=== PATIENT | male | born 1970 | race African-American/Black ===

== ENCOUNTER 2018-08-31 15:24 | Emergency (ER) | payer OTHER ==
[~2018-08-31] VITALS: Ht 188 cm; Wt 163.6 kg
[~2018-08-31 15:24] MED LIST: ALBU8.5H8 IH; ASPI-1182 PO; BECL8.7A5 IH; BENZ0.5T44 PO; FURO80TA3 PO; GEMF600T89 PO; LISI40TA4 PO; METF-444 PO; METO-391 PO; NAPR-1024 PO; OMEP20CA10 PO; RISP4 PO; SLOWK8 PO; TRAM50TA4 PO; TRAZ-186 PO; VENL-68 PO
[2018-08-31 16:04] LABS: GLUCOSE,POINT OF CARE 172 MG/DL (70-110)
[2018-08-31] MEDS ORDERED: ACET-2247 PO (16:04)
[2018-08-31] MEDS ORDERED: LISI-661 PO (16:04)
[2018-08-31] MEDS ORDERED: GABA-531 PO (16:04)
[2018-08-31] MEDS ORDERED: TRIA1CAP2 PO (16:04)
[2018-08-31] MEDS ORDERED: SIMV-260 PO (16:04)
[2018-08-31] MEDS ORDERED: TAMS-1 PO (16:06)
[2018-08-31 18:25] VITALS: BP 128/50
== END 2018-08-31 19:27 | disposition home or self-care (01) ==
LOC: EMS 15:25
DX: S93.402A Sprain of unspecified ligament of left ankle, initial encounter (principal); E11.9 Type 2 diabetes mellitus without complications; E66.01 Morbid (severe) obesity due to excess calories; I10 Essential (primary) hypertension; F32.9 Major depressive disorder, single episode, unspecified; F20.9 Schizophrenia, unspecified; F17.210 Nicotine dependence, cigarettes, uncomplicated; Z68.42 Body mass index [BMI] 45.0-49.9, adult; Z79.899 Other long term (current) drug therapy; Z88.6 Allergy status to analgesic agent; Z88.8 Allergy status to other drugs, medicaments and biological substances; X50.1XXA Overexertion from prolonged static or awkward postures, initial encounter; Y93.89 Activity, other specified; Y92.89 Other specified places as the place of occurrence of the external cause; Y99.8 Other external cause status

== ENCOUNTER 2020-06-18 11:49 | Emergency (ER) | payer OTHER ==
[~2020-06-18] VITALS: Ht 188 cm; Wt 145.4 kg
[~2020-06-18 11:49] MED LIST changes: +ACET-2247 PO; +ASPI-1111 PO; -ASPI-1182 PO; -FURO80TA3 PO; +GABA-1181 PO; -GEMF600T89 PO; +LISI-893 PO; -LISI40TA4 PO; -OMEP20CA10 PO; -RISP4 PO; +RISP4TAB73 PO; +SIMV-260 PO; -SLOWK8 PO; +TAMS-1 PO; -TRAM50TA4 PO; +TRIA1CAP2 PO
[2020-06-18] MEDS ORDERED: LIDOCAINE 5% TRANSDERMAL PATCH TD ONE (12:30)
[2020-06-18] MEDS ORDERED: DIAZEPAM 5 MG TABLET PO ONE (12:30)
[2020-06-18] MEDS ORDERED: KETOROLAC TROMETHAMINE 30 MG/ML VIAL IM ONE (13:30)
[2020-06-18 15:15] VITALS: BP 139/78
== END 2020-06-18 15:17 | disposition home or self-care (01) ==
LOC: EMS 11:54
DX: M62.838 Other muscle spasm (principal); M25.511 Pain in right shoulder; F32.9 Major depressive disorder, single episode, unspecified; E11.9 Type 2 diabetes mellitus without complications; I10 Essential (primary) hypertension; F20.9 Schizophrenia, unspecified; F17.210 Nicotine dependence, cigarettes, uncomplicated; Z88.6 Allergy status to analgesic agent; Z88.8 Allergy status to other drugs, medicaments and biological substances; Z79.899 Other long term (current) drug therapy; Z79.82 Long term (current) use of aspirin
CPT/HCPCS: 82962; 96372; 99283; J1885

== ENCOUNTER 2020-06-20 02:31 | Emergency (ER) | payer OTHER ==
[~2020-06-20] VITALS: Ht 188 cm; Wt 161.4 kg
[2020-06-20] MEDS ORDERED: KETOROLAC TROMETHAMINE 30 MG/ML VIAL IM ONE (03:00)
[2020-06-20 03:49] VITALS: BP 120/88
== END 2020-06-20 03:52 | disposition home or self-care (01) ==
LOC: EMS 02:32
DX: G89.29 Other chronic pain (principal); M79.675 Pain in left toe(s); E11.9 Type 2 diabetes mellitus without complications; I10 Essential (primary) hypertension; F20.9 Schizophrenia, unspecified; F17.210 Nicotine dependence, cigarettes, uncomplicated
CPT/HCPCS: 73630; 82962; 96372; 99283; J1885